=== PATIENT | male | born 1965 | race Hispanic/Latino ===

== ENCOUNTER 2024-04-03 08:24 | Emergency (ER) | payer BC ==
--- OUTSIDE RECORDS SUMMARY | 2024-04-03 08:28 | XMS REPORT | Continuity of Care Document ---
Author Name Unknown Address 1200 [facility]. [address] [place], [place] [id number] [place] [address] thconnect Address 1200 [facility] [address] [place] [address] Care Team Providers Care Monotype Caster Name Role Phone Jovon Goodwin Attending Clinician Unavail able Riley Dudley Attending Clinician Unavailable Anderson Escalante Attending Clinician Unavailkavitha e Brian Amaya Attending Clinician Charly e Jovon Goodwin Admitting Clinician Unavail able Raza Posada Admitting Clinician Unavailable Payers Payer Name Policy Type Policy Number Effective Date Expirati on Date Source Allergies, Adverse Reactions, Alerts Allergy Name Allergy Type Status Severity Reaction(s) Onset Date Inactive Date Treating Clinician Comments Source No Known Allergie s DA Active U 2023-02 00:00: 00 [facility] No Known Allergie s DA Active U 08-23 00:00: 00 [facility] No Known Allergie s DA Active U 08-23 00:00: 00 [facility] Encounters Start Date/Time End Date/Time Encounter Type Admission Type Attending Clinicians Care Facility Care Department Encounter ID Source 2024-01-31 12:24:00 2024-02-01 14:41:00 Inpatient EM Jovon Goodwin [facility] [id number] [facility] 2023-03-02 02:18:00 2023-03-02 02:40:00 Emergency EM Riley Dudley [facility] ER [id number] [facility] 2022-05-06 02:35:00 2022-05-06 04:20:00 Emergency EM Anderson Escalante [facility] ER [id number] [facility] 2020-08-23 13:21:00 2020-08-23 14:01:00 Emergency EM Brian Amaya [facility] ER [id number] [facility] Results Test Description Test Time Test Comments Results Result Co mments Source D-DIMER [id number] 10:54:00* Test Item Value Reference Range Interpretation Comme nts D-DIMER QUANT (test code = DDIMER) 270 ng/mL <500 N "D-DIMER CUT OFF OF 500 ng/mL (FEU) IS USEFUL TO EXCLUDE DXOF DVT/PEExpected value(RI) is less than 500 ng/mL (FEU) for normalhealthy subjects."Please note: Results of D-dimer assays should always beinterpreted in conjunction with the patient's medicalhistory, clinical presentation/probability and otherfindings. [id number] 06:35:00* Test Item Value Reference Range Interpretation Comme nts GLUBED (test code = GLUBED) 123 mg/dL 70-105 H Performed by cer tified fusing machine operator at [facility] BASIC METABOLIC [id number] 05:50:00* Test Item Value Reference Range Interpretation Comme nts SODIUM (test code = NA) 138 mmol/L 136-145 N POTASSIUM (test code = K) 3.9 mmol/L 3.5-5.1 N CHLORIDE (test code = CL) 105 mmol/L 98-107 N CARBON DIOXIDE (test code = CO2) 30 mmol/L 21-32 N GLUCOSE (test code = GLU) 107 mg/dL 70-100 H BLOOD UREA NITROGEN (test code = BUN) 18 mg/dL 7-18 N GLOMERULAR FILTRATION RATE (test code = GFR) 97.09 >=60 The Glomerular Filtration Rate is a calculated parameterbased on serum Creatinine, patient age and sex. GFR valuesless than 60 mL/min/1.73 square meters are indicative ofChronic Kidney Disease. Values less than 15 mL/min/1.73square meters indicate Kidney failure. The calculation forGFR is based on the CKD-EPI (2020) calculation. This formulais race indifferent and is the recommended formula for GFRby the National Kidney Foundation for Adults.The GFR will not calculate if the sex is unknown or if thepatient's age is <18 years. CREATININE (test code = CREAT) 0.91 mg/dL 0.67-1.17 N CALCIUM (test code = CA) 8.9 mg/dL 8.5-10.1 N LIPID PROFILE (CORONARY RISK)2024-02-01 05:50:00* Test Item Value Reference Range Interpretation Comme nts TRIGLYCERIDES (test code = TRIG) 276 mg/dL 30-150 H Previously repor jose result: 276 mg/dLEdited by: [id number] on 02/01/24: 0548: TRIGLYCERIDES previously reported as: 276 H mg/dL CHOLESTEROL (test code = CHOL) 106 mg/dL 0-200 N HDL CHOLESTEROL (test code = HDL) 28 mg/dL 40-59 L NON-HDL CHOLESTEROL (test code = NHDL) 78 mg/dl <130 LIPOPROTEIN LDL KARLIE (test code = LDLC) 23 mg/dl <100 Previously re ported result: 23 mg/dlEdited by: [id number] on 02/01/24: 0548: LDL KARLIE previously reported as: 23 mg/dl LDL/HDL (test code = LDL/HDL) 0.8 Ratio LDL/HDL [facility] 3.22 Average 5.03 Twice average 6.14 Three times averagePreviously reported result: 0.8 RatioEdited by: [id number] on 02/01/24:83932502/01/24 0549: LDL/HDL previously reported as: 0.8 Ratio TROPI (HIGH SENSITIVITY)2024-02-01 05:50:00* Test Item Value Reference Range Interpretation [facility] TROPI (HIGH SENSITIVITY) (test code = TROPI) 7 pg/ml <=3.0 N HIGH SENSITIVITY TROPONIN MEASUREMENT/RANGES--------- Ass ay : Units : Normal : Risk Stratification : High : : (Detectable : Limit(Suggestive of : AboveTNIH : : Limit) : sequential testing) : 99th : : : : % ile --------FEMALES: pg/ml : <= 3.0 : 3.1 - 54 : >54 --------MALES : pg/ml : <= 3.0 : 3.1 - 78 : >78 --------- [id number] 05:45:00* Test Item Value Reference Range Interpretation [facility] GLYCOSYLATED HEMOGLOBIN (HA1C) (test code = GLYHGB) 6.0 % <5.7 H SUGGESTED D IAGNOSIS INTERPRETATION Normal: <5.7% Prediabetes: 5.7 - 6.4% Diabetic: >/= 6.5%* DUE TO METHOD REVISION, REFERENCE RANGE HAS BEEN UPDATED * ESTIMATED AVERAGE GLUCOSE (test code = EAG) 126 MG/DL <126 CBC W/AUTO [id number] 04:59:00* Test Item Value Reference Range Interpretation Comme nts WHITE BLOOD CELL (test code = WBC) 9.7 X10(3) 4.5-11.0 N RED BLOOD CELL (test code = RBC) 4.17 X10(6) 4.3-5.9 L HEMOGLOBIN (test code = HGB) 13.1 g/dL 13.5-18.0 L HEMATOCRIT (test code = HCT) 38.9 % 42.0-52.0 L MEAN CELL VOLUME (test code = MCV) 93.3 fl 78-100 N MEAN CELL HGB (test code = MCH) 31.4 pg 26.0-34.0 N MEAN CELL HGB CONCETRATION (test code = MCHC) 33.7 g/dl 30.0-37.0 N RED CELL DISTRIBUTION WIDTH (test code = RDW) 12.6 % 11.5-14.5 N PLATELET COUNT (test code = PLT) 163 X10(3) 150-400 N MEAN PLATELET VOLUME (test c ode = MPV) 11.5 fl 8.7-11.4 H NEUTROPHIL % (test code = NT%) 63.5 % 36.0-66.0 N IMMATURE GRANULOCYTE % (test code = IG%) 0.4 % 0.0-2.0 N LYMPHOCYTE % (test code = LY%) 23.7 % 16.0-50.0 N MONOCYTE % (test code = MO%) 9.4 % 0.0-13.0 N EOSINOPHIL % (test code = EO%) 2.2 % 0.0-4.5 N BASOPHIL % (test code = BA%) 0.8 % 0.0-1.5 N NUCLEATED RBC % (test code = NRBC%) 0.0 % 0-0.2 N NEUTROPHIL # (test code = NT#) 6.18 X10(3) 1.70-7.70 N IMMATURE GRANULOCYTE # (test code = IG#) 0.04 X10(3)uL 0.00-0.03 H LYMPHOCYTE # (test code = LY#) 2.31 X10(3) 0.70-4.00 N MONOCYTE # (test code = MO#) 0.92 X10(3) 0.00-0.89 H EOSINOPHIL # (test code = EO#) 0.21 X10(3) 0.00-0.60 N BASOPHIL # (test code = BA#) 0.08 X10(3) 0.00-0.20 N NUCLEATED RBC # (test code = NRBC#) 0.00 K/mm3 0.0-0.1 N RBC MORPHOLOGY REQUIRED (danita t code = RBCM) NO NORMAL TROPI (HIGH SENSITIVITY)2024-01-31 22:06:00* Test Item Value Reference Range Interpretation Comme nts TROPI (HIGH SENSITIVITY) (test code = TROPI) 8 pg/ml <=3.0 N HIGH SENSITIVITY TROPONIN MEASUREMENT/RANGES--------- Ass ay : Units : Normal : Risk Stratification : High : : (Detectable : Limit(Suggestive of : AboveTNIH : : Limit) : sequential testing) : 99th : : : : % ile --------FEMALES: pg/ml : <= 3.0 : 3.1 - 54 : >54 --------MALES : pg/ml : <= 3.0 : 3.1 - 78 : >78 --------- DRUGS OF ABUSE [id number] 21:20:00* Test Item Value Reference Range Interpretation Comme nts UR COCAINE (test code = COCAU) NEGATIVE ng/ml NEGATIVE UR CANNABINOIDS (test code = CANU) NEGATIVE ng/ml NEGATIVE UR AMPHETAMINE (test code = AMPHU) NEGATIVE ng/dl NEGATIVE UR BARBITURATE (test code = BARBU) NEGATIVE ng/ml NEGATIVE UR BENZODIAZEPINE (test code = BENZU) NEGATIVE ng/ml NEGATIVE UR OPIATES QUAL (test code = OPIAQLU) NEGATIVE ng/ml NEGATIVE UR PHENCYCLIDINE (PCP) (test code = PHENCU) NEGATIVE ng/ml NEGATIVE THE URINE SPECIM EN WAS TESTED AT THE [facility] INITIAL TEST LEVEL AMPHETAMINES 1000 NG/MLBARBITURATES 200 NG/MLBENZODIAZEPIN ES 200 NG/MLCOCAINE METABOLITE 300 NG/MLMARIJUANA METABOLITE 50 NG/MLOPIATES 300 NG/MLPHENCYCLIDINE 25 NG/ML [id number] 20:50:00* Test Item Value Reference Range Interpretation Comme nts GLUBED (test code = GLUBED) 105 mg/dL 70-105 N Performed by cer tified fusing machine operator at [facility] TROPI (HIGH SENSITIVITY)2024-01-31 16:25:00* Test Item Value Reference Range Interpretation Comme nts TROPI (HIGH SENSITIVITY) (test code = TROPI) 7 pg/ml <=3.0 N HIGH SENSITIVITY TROPONIN MEASUREMENT/RANGES--------- Ass ay : Units : Normal : Risk Stratification : High : : (Detectable : Limit(Suggestive of : AboveTNIH : : Limit) : sequential testing) : 99th : : : : % ile --------FEMALES: pg/ml : <= 3.0 : 3.1 - 54 : >54 --------MALES : pg/ml : <= 3.0 : 3.1 - 78 : >78 --------- [id number] 15:56:00* Test Item Value Reference Range Interpretation Comme nts GLUBED (test code = GLUBED) 104 mg/dL 70-105 N Performed by cer tified fusing machine operator at [facility] POC,[id number] 11:20:00* Test Item Value Reference Range Interpretation Comme nts POC,PHOSPHORUS (test code = EDPHOS) 3.6 mg/dL 2.2-4.1 N [facility], [address] [place] [address], [address], [phone]-KcAwuts [facility], [address] [place] [address], [address], POC,[id number] 11:20:00* Test Item Value Reference Range Interpretation Comme [facility] POC,MAGNESIUM (test code = EDMG) 2.1 mg/dL 1.6-2.3 N [facility], [address] [place] [address], [address], [phone]-LhMzsuz [facility], [address] [place] [address], [address], COMPREHENSIVE METABOLIC [id number] 11:19:00* Test Item Value Reference Range Interpretation Comme nts POC,SODIUM (test code = ARTEMIO) 144 mmol/L 128-145 N POC,POTASSIUM (test code = EDK) 4.5 mmol/L 3.6-5.1 N POC,CHLORIDE (test code = EDCL) 106 mmol/L 98-108 N POC,TCO2 (test code = EDTCO2) 31 mmol/L 18-33 N POC,ANION GAP (test code = EDAGAP) 7 mmol/L 7-16 N POC,BUN (test code = EDBUN) 14 mg/dL 7-22 N POC,CREATININE (test code = EDCRE) 0.9 mg/dL 0.6-1.2 N POC,GLUCOSE (test code = EDGLUC) 125 mg/dL 73-118 H POC,CALCIUM (test code = EDCA) 9.7 mg/dL 8.0-10.3 N POC,eGFR (test code = EDGFR) 98 mL/min See_Comment eGFR is not calc ulated if age <18 yrs, if the sex in EHR islisted as unknown or the creatinine level is below assayrange. This result value is determined by the eGFR 2020 CKD-EPIformula using serum creatinine, age and sex, excluding arace coefficient. The assay for creatinine is traceable tothe IDMA reference method. Chronic kidney disease (CKD) maynot be detectable based solely on creatinine levels. A eGFR> 60 does not rule out mild renal disease. To distinguishnormal renal function from mild renal disease, furtherlaboratory testing may be required. [Automated message] The system which generated this result transmitted reference range: >or=60. The reference range was not used to interpret this result as normal/abnormal. POC,ALBUMIN (test code = EDALB) 4.1 g/dL 3.3-5.5 N POC,TOTAL PROTEIN (test code = EDTP) 7.4 g/dL 6.4-8.1 N POC,BILIRUBIN TOTAL (test code = EDTBIL) 0.9 mg/dL 0.2-1.6 N POC,AST (test code = EDAST) 30 U/L 11-38 N POC,ALT (test code = EDALT) 33 U/L 10-47 N POC,ALKALINE PHOSPHATASE (test code = EDALP) 80 U/L 53-128 N [facility] [address], [address], POC,TROPONIN [id number] 10:58:00* Test Item Value Reference Range Interpretation Comme nts POC,TROPONIN I (test code = EDTROPI) <0.05 ng/mL <0.05 N The [employer] Troponin Test is used as an aid in thediagnosis of myocardial infarction (injury). Test results should not be used as absolute evidence ofmyocardial infarction and should be evaluated in the contextof all the clinical and laboratory data available. In thoseinstances where the test results do not agree with theclinical evaluation, additional tests should be performedaccordingly. [facility] [address], [address], POC,B TYPE NATRIURETIC [id number] 10:49:00* Test Item Value Reference Range Interpretation Comme [facility] POC,B TYPE NATRIURETIC PEPTIDE (test code = EDBNP) 18 pg/mL <100 N The [employer] BNP Test offers an objective, noninvasivemeasurement for assessing patients for CHF and riskstratification in patients with acute coronary syndromes(ACS). Test results should be evaluated in the context of all theclinical and laboratory data available. In those instanceswhere test results do not agree with the clinicalevaluation, additional tests should be performedaccordingly. Results using different methodologies shouldnot be compared to one another as quantitative results mayvary by method. EXPECTED VALUES:BNP results less than or equal to 100 pg/mL arerepresentative of normal values in patients without CHF. BNP results greater than 100 pg/mL are considered abnormaland suggestive of patients with CHF. BNP results of greater than 5000 pg/mL are considered veryhigh values for BNP and exceed upper limits of the BNP test. Higher BNP concentrations measured in the first 72 hoursafter an acute coronary syndrome are associated with anincreased risk of , myocardial infarction, and CHF. Higher BNP concentrations or the lack of decrease in the BNPconcentration from hospital admission to discharge indicatean increased risk of hospitalization or in patientswith heart failure. [facility], [address], [address], COMPLETE BLOOD COUNT (CBC)2024-01-31 10:34:00* Test Item Value Reference Range Interpretation Comme [facility] POC,WHITE BLOOD CELL (test c ode = EDWBCP) 9.9 10 3/uL 3.9-9.4 H POC,RED BLOOD CELL (test cod e = EDRBCP) 4.63 10 6/uL 4.14-5.52 N POC,HEMOGLOBIN (test code = EDHGBP) 14.6 g/dL 11.9-16.7 N POC,HEMATOCRIT (test code = EDHCTP) 41.2 % 36.1-49.4 N POC,MEAN CELL VOLUME (test c ode = EDMCVP) 89.0 fL 83.2-96.0 N POC,MEAN CELL HEMOGLOBIN (te st code = EDMCHP) 31.5 pg 27.1-32.5 N POC,MEAN CELL HGB CONC (test code = EDMCHCP) 35.4 g/dL 31.0-35.8 N POC,PLATELET COUNT (test cod e = EDPLTP) 156 10 3/uL 155-330 N POC,RED CELL DISTRIB WIDTH ( test code = EDRDWP) 13.3 % 12.0-15.0 N POC,LYMPHOCYTES % (test code = EDLYM%P) 22.0 % 16.8-42.5 N POC,MIXED CELLS % (test code = EDMXD%P) 7.5 % 3.2-16.9 N POC,NEUTROPHILS % (test code = EDNEUT%P) 70.5 % 46.4-74.7 N POC,LYMPHOCYTES # (test code = EDLYM#P) 2.2 10 3/uL 0.9-3.0 N POC,MIXED CELLS # (test code = EDMXD#P) 0.7 10 3/uL 0.2-1.1 N POC,NEUTROPHILS # (test code = EDNEUT#P) 7.0 10 3/uL 2.2-6.4 H POC,MEAN PLATELET VOLUME (te st code = EDMPVP) 11.9 fL 8.7-12.6 N [facility] [address], [address], Notes Date/Time Note Provider Source 2024-02-01 11:49:00 [facility] Discharge Summary REPORT#:[id number] REPORT STATUS: Signed REPORT INITIALIZATION DATE:02/01/24 TIME: 1149 PATIENT: NETTA RAYMUNDO UNIT #: [id number] ROOM/BED: [address] : 64 AGE: 58 SEX: M ATTEND: Jovon Goodwin MD ADM AUTHOR: Jovon Goodwin MD REPT SERVICE DT/TIME: 02/01/24 1149 * ALL edits or amendments must be made on the electronic/computer document * PCP PCP Discharge to: home General Information Discharge date: 02/01/24 Discharge diagnosis: Chest pain likely MSK, ruled out ACS. HTN DM2 Active smoker [facility] Hospital course: 58-year-old male who presented to the freestanding ER with complaints of chest pain. He states he went to sleep fine but woke up due to chest pain on the left side. He states it radiated to his back. He denied any diaphoresis, nausea, shortness of breath or palpitations, no dizziness at that time but states yesterday he did feel a little dizzy while he was setting up for a barbecue. He denies doing anything out of the ordinary, he used an ax yesterday which he usually does every few weeks. He took 4 aspirin at home and states the pain did not last very long but since it radiated to his back which was different than the previous times he decided to come to the emergency room. He states the pain worsens when he is laying on his left side. He does admit to recently increased stress. Upon evaluation in the ER, troponin was normal At less than 0.05 BNP normal 18 EKG showing sinus rhythm with a rate of 72. ER MD notes indicate EKG is with some abnormality with questionable old infarct and he has been transferred to the main hospital and admitted to our services for further management. Right now patient is being seen in his room, , he is chest pain -free at this time. Family is at bedside. Patient admitted for further evaluation and treatment. Patient had serial troponin that were negative times 3. EKG without new changes. CXR without noticible fractures; ddimer normal for age, no signs of PE with a WELLS score of 0. Pain likely from MSK as patient mention pain started weeks ago after carrying something heavy. Patient can f/u with PCP, no ACS during this admission. Associated exam: General appearance: alert, awake, oriented, no acute distress, pleasant, conversational, mental status normal, no respiratory distress Head/Eyes: atraumatic, normal conjunctiva/sclera, normocephalic, PERRL ENT: moist mucosal membranes, normal dentition, normal ear left, normal ear right, normal nose Neck: full range of motion, supple/no meningismus, no JVD Cardiovascular: normal heart sounds, regular rate rhythm Respiratory: aerating well, clear to auscultation, symmetric expansion, no distress Abdomen: non-tender, normal bowel sounds, soft, no distention Genitourinary: no flank pain Extremities: moves all, normal range of motion, no cyanosis, no edema Musculoskeletal: normal inspection, no muscle spasm Neuro/WIRE WEB WORKER: alert, oriented X 3, normal speech Skin: dry, intact, normal color Psychiatry: normal affect, normal judgment/insight, normal mood Med Rec PCP PCP: PCP: Raza Posada MD Med Rec Discharge meds: Continue taking these medications: amLODIPine (NORVASC) 10 MG TAB 10 MILLIGRAM ORAL DAILY. Comments: TAKE 1 TABLET BY MOUTH ONCE DAILY; 90 Days #90 EA - SIG Obtained From [employer]View™ Audio ATORVASTATIN (LIPITOR) 40 MG TAB 40 MILLIGRAM ORAL DAILY. Comments: TAKE 1 TABLET BY MOUTH ONCE DAILY AT NIGHT; 90 Days #90 EA - SIG Obtained From [employer]™ Audio metFORMIN (GLUCOPHAGE) 1,000 MG TAB 1,000 MILLIGRAM ORAL DAILY. Instructions: TAKE WITH MEALS Comments: TAKE 1 TABLET BY MOUTH ONCE DAILY WITH FOOD; 90 Days #90 EA - SIG Obtained From [employer]View™ Audio OLMESARTAN MED/amLODIPine/HCTZ (TRIBENZOR 40/10/12.5 MG) 40 MG-10 MG-12.5 MG TAB 1 TABLET ORAL DAILY. Objective VS/I O Last Documented: Result Date Time Pulse Ox 95 01/31 1123 B/P 122/62 01/31 1123 B/P Mean 82.0 01/31 1123 O2 Delivery Room air 01/31 112 Temp 36.9 01/31 1123 Pulse 60 01/31 1123 Resp 17 01/31 1123 24 hour I O ending at 0700: 01/31 0700 01/30 1900 Intake Total 240 Output Total Balance 240 Intake, Oral 240 Number 0 Bowel Movements Number Voids 8 Patient 105 kg Weight Weight Standing scale Measurement Method PATIENT WEIGHT: Weight (lb): Weight (oz): Weight (kg): 105.000 Discharge Instructions PCP PCP: PCP: Raza Posada MD )( Discharge to: Home/Self Care Discharge Instructions Additional Discharge Routines: PCP Follow-Up )( Diet: Low Sodium Discharge management: greater than 30 mins Time spent: Time spent on patient care (minutes): 47 Follow-up Appointments PCP follow up: PCP: Raza Posada MD PCP follow up timeframe: In 5 days at 1157 RPT #:[id number] [facility] OF [facility] 2024-01-31 16:10:00 [id number] [place] [address] PATIENT NAME: NETTA RAYMUNDO ADMIT DATE: 01/31/24 ACCOUNT NO: [id number] ROOM NO: [facility] AGE: 58 REPORT TYPE: ELECTROCARDIOGRAM SEX: M : 63 ADMITTING PHYSICIAN:Jovon Goodwin MD ATTENDING PHYSICIAN:Jovon Goodwin MD Order: [id number] Test Reason : chest pain Test Date/Time Stamp: [place] Jan 31 2024 16:10:32 Blood Pressure : / mmHG Vent. Rate : 053 BPM Atrial Rate : 053 BPM P-R Int : 172 ms QRS Dur : 100 ms QT Int : 424 ms P-R-T Axes : 035 018 -06 degrees QTc Int : 397 ms Sinus bradycardia Possible Anterior infarct , age undetermined Abnormal ECG No previous ECGs available Confirmed by CARLOS HILLMAN ([id number]) on 03/18/2024 8:43:07 AM Referred By: Jovon Sidhu Confirmed by:BRENDA HILLMAN at 0843 PATIENT NAME: NETTA RAYMUNDO [facility] 2024-01-31 15:23:00 [facility] ([facility] Hospitalist History Physical REPORT#:[id number] REPORT STATUS: Signed REPORT INITIALIZATION DATE:01/31/24 TIME: 1523 PATIENT: NETTA RAYMUNDO UNIT #: [id number] [facility] AGE: 58 SEX: M ATTEND: Jovon Goodwin MD ADM AUTHOR: Lorie Romeo CARBURETOR SPECIALIST [facility] DT/TIME: 01/31/24 1523 * ALL edits or amendments must be made on the electronic/computer document * Lorie Romeo 01/31/24 1523: History of Present Illness HPI Chief complaint: LEFT SIDED CP PCP: PCP: Raza Posada MD HPI: 58-year-old male who presented to the freestanding ER with complaints of chest pain. He states he went to sleep fine but woke up due to chest pain on the left side. He states it radiated to his back. He denied any diaphoresis, nausea, shortness of breath or palpitations, no dizziness at that time but states yesterday he did feel a little dizzy while he was setting up for a barbecue. He denies doing anything out of the ordinary, he used an ax yesterday which he usually does every few weeks. He took 4 aspirin at home and states the pain did not last very long but since it radiated to his back which was different than the previous times he decided to come to the emergency room. He states the pain worsens when he is laying on his left side. He does admit to recently increased stress. Upon evaluation in the ER, troponin was normal At less than 0.05 BNP normal 18 EKG showing sinus rhythm with a rate of 72. ER MD notes indicate EKG is with some abnormality with questionable old infarct and he has been transferred to the main hospital and admitted to our services for further management. Right now patient is being seen in his room, , he is chest pain -free at this time. Family is at bedside. History Past Medical Surgical Hx Additional medical history: Diabetes and hypertension and hyperlipidemia Severe obesity with clinically significant comorbidities [BMI 35.8 kg/m on 03/02/2023] 1 prior episode of allergic/angioedema/urticaria reaction to eating hot dog [03/02/2023] similar reaction to eating red taco. Additional surgical history: Dental work Family History Additional family history: Diabetes Social History Other social history: Primary family support, Local resident, Good social support Additional social history: Quit smoking 8 years ago but was a 1 pack/day smoker. Admits to drinking at least 2 beers every Thursday and Thursday. No drug abuse. Medication/Allergy-Vaccine Hx Medications: Home Medications: amLODIPine (NORVASC) 10 MG PO DAILY ATORVASTATIN (LIPITOR) 40 MG PO DAILY metFORMIN (GLUCOPHAGE) 1,000 MG PO DAILY OLMESARTAN MED/amLODIPine/HCTZ (TRIBENZOR 40/10/12.5 MG) 1 TAB PO DAILY Allergies: Coded Allergies: No Known Allergies (01/31/24) Review of Systems Free Text ROS Notes Free Text ROS Notes: A 14 point review of system was obtained, pertinent positives and negatives include: Complains of left-sided chest pain that radiates to his back that is worsened while laying on his left side. No complaints of any dizziness or shortness of breath, nausea, vomiting, palpitations, syncopal episodes. No fevers or chills. No urinary symptoms. No abdominal pain, vomiting or diarrhea OBJECTIVE VS/I O: Vital Signs Date Temp Pulse Resp B/P B/P Mean Pulse Ox FiO2 01/30 98.1-98.6 62-78 16-17 125-165/61-81 82-109.2 95-99 Last Documented: Result Date Time Pulse 62 01/30 1506 Pulse Ox 95 01/30 1449 B/P 165/81 01/30 1449 B/P Mean 109.2 01/30 1449 O2 Delivery Room air 01/30 1449 Temp 98.4 01/30 1449 Resp 17 01/30 1449 Patient Weight and BMI Weight (kg): 105.000 BMI: 33.2 Medications: Active Meds + DC'd Last 24 Hrs Aspirin (ASPIRIN) 81 MG DAILY PO Insulin Human Regular (Humulin R 10ml) MODERATE DOSE SLIDING SCALE AC HS SUBQ Dextrose/Water (DEXTROSE 50% SYRINGE) 25 ML ASDIR PRN IV (CKD) Glucagon (GLUCAGON) 1 MG ASDIR PRN IM Nitroglycerin (NITROSTAT 0.4MG) 1 TAB Q5M PRN PRN SL (CKD) Influenza Virus Vacc Triv Types A B (Fluzone Trivalent Syringe) 0.5 ML ASDIR IM Influenza Virus Vacc Triv Types A B (Fluzone Trivalent Syringe) 0.5 ML ASDIR IM (DC) Aspirin (ASPIRIN) 324 MG X1ED STA PO (DC) Results Findings/Data: Laboratory Tests: 01/30 01/30 01/30 01/30 01/30 1055 1045 1032 1030 1024 Chemistry POC Sodium (128 - 145 mmol/L) 144 POC Potassium (3.6 - 5.1 mmol/L) 4.5 POC Chloride (98 - 108 mmol/L) 106 POC Total CO2 (18 - 33 mmol/L) 31 POC Anion Gap (7 - 16 mmol/L) 7 POC BUN (7 - 22 mg/dL) 14 POC Creatinine (0.6 - 1.2 mg/dL) 0.9 Est GFR (CKD-EPI 2020) (>or=60 mL/min) 98 POC Glucose (73 - 118 mg/dL) 125 H POC Calcium (8.0 - 10.3 mg/dL) 9.7 POC Phosphorus (2.2 - 4.1 mg/dL) 3.6 POC Magnesium (1.6 - 2.3 mg/dL) 2.1 POC Total Bilirubin (0.2 - 1.6 mg/dL) 0.9 POC AST (11 - 38 U/L) 30 POC ALT (10 - 47 U/L) 33 POC Alk Phosphatase (53 - 128 U/L) 80 POC Troponin I (<0.05 ng/mL) <0.05 POC B-Natriuretic Pept (<100 pg/mL) 18 POC Total Protein (6.4 - 8.1 g/dL) 7.4 POC Albumin (3.3 - 5.5 g/dL) 4.1 Hematology POC WBC (3.9 - 9.4 10 3/uL) 9.9 H POC RBC (4.14 - 5.52 10 6/uL) 4.63 POC Hgb (11.9 - 16.7 g/dL) 14.6 POC Hct (36.1 - 49.4 %) 41.2 POC MCV (83.2 - 96.0 fL) 89.0 POC MCH (27.1 - 32.5 pg) 31.5 POC MCHC (31.0 - 35.8 g/dL) 35.4 POC RDW Coeff of Aryan (12.0 - 15.0 %) 13.3 POC Platelet Count (155 - 330 10 3/uL) 156 POC MPV (8.7 - 12.6 fL) 11.9 POC Mixed Cells % (3.2 - 16.9 %) 7.5 POC Neut # (2.2 - 6.4 10 3/uL) 7.0 H POC Lymph # (Auto) (0.9 - 3.0 10 3/uL) 2.2 POC Mixed Cells # (0.2 - 1.1 10 3/uL) 0.7 POC Lymphocytes % (16.8 - 42.5 %) 22.0 POC Neutrophils % (46.4 - 74.7 %) 70.5 Radiology data: Recent Impressions: RADIOLOGY - XR CHEST 1 V 01/30 1030 Report Impression - Status: SIGNED Entered: 01/31/2024 1058 FINDINGS/IMPRESSION: No consolidation. No pleural effusion, or pneumothorax. Nonenlarged cardiomediastinal silhouette. Impression By: [email or web address] Armin Billingsley MD Results: labs reviewed, vital signs reviewed, vital signs stable, x-ray personally reviewed, current med profile rev'd Free Text PE Notes Free Text PE Notes: General appearance: alert, awake, oriented, no acute distress, pleasant, conversational, mental status normal, no respiratory distress Head/Eyes: atraumatic, normal conjunctiva/sclera, normocephalic, PERRL ENT: moist mucosal membranes, normal dentition, normal ear left, normal ear right, normal nose Neck: full range of motion, supple/no meningismus, no JVD Cardiovascular: normal heart sounds, regular rate rhythm Respiratory: aerating well, clear to auscultation, symmetric expansion, no distress Abdomen: non-tender, normal bowel sounds, soft, no distention Genitourinary: no flank pain Extremities: moves all, normal range of motion, no cyanosis, no edema Musculoskeletal: normal inspection, no muscle spasm Neuro/WIRE WEB WORKER: alert, oriented X 3, normal speech Skin: dry, intact, normal color Psychiatry: normal affect, normal judgment/insight, normal mood Diagnosis, Assessment Plan Free Text A P: ASSESSMENT: Chest pain w/neg trop x1 HTN DM2 Active smoker Obestiy PLAN: tele monitoring Trend troponins Check EKG Check UDS add BB and asa cxr film reviewed, no infiltrates resume home meds Follow am labs including lipid panel and A1c DVT/PUD prophylaxis: Lovenox and Pepcid monitor bp and adjust meds as needed monitor gluocmeters and cover w/RISS plan d/w pt at bedside, in agreement case d/w Dr. Logan see orders Jovon Goodwin 02/01/24 1235: Attestations Physician Attestation Agree w/findings plan: Agree with the findings and plan as documented by CERTIFIED PROCEDURAL CODER. at 1622 at 1235 RPT #:[id number] END OF REPORT [facility] 2024-01-31 10:18:[address] [facility] ([facility] EMERGENCY PROVIDER REPORT REPORT#:[id number] REPORT STATUS: Signed DATE:01/31/24 TIME: 1018 PATIENT: NETTA RAYMUNDO UNIT #: [id number] ROOM/BED: [place] [id number] : 64 AGE: 58 SEX: M PCP PHYS: Raza Posada MD SERVICE AUTHOR: Rand Nur DO REP SRV REP SRV TM: 1018 * ALL edits or amendments must be made on the electronic/computer document * HPI-Chest Pain 40 and Over General Confirmed Patient Yes Patient Type Existing patient Initial Greet Date/Time 01/31/24 1018 Presentation Chief Complaint Chest pain Hx Obtained From Patient Sudden in Onset? No Onset Occurred Yesterday Symptom Duration Since onset Progression since Onset Unchanged Location Chest L Quality Aching Radiation Arm L, Shoulder L. )( Migration/Movement None Risk-Chest Pain 40 and Over Risk Stratification )( Coronary Artery Disease Risk factors reviewed )( Thoracic Aortic Dissection Risk factors reviewed )( Pulmonary Embolism Risk factors reviewed )( AMI-Aspirin Aspirin Last 24 Hrs 325 mg, On arrival )( HEART for MACE )( HEART for MACE Response Value History High index of suspicion 2 ECG Interpretation Nonspec repol disturb 1 Age Age 45 - 65 1 Risk Factors for CAD 1-2 CAD risk factors 1 Total 5 Review of Systems ROS Statements All systems rev neg except as marked. Complete sys rev neg except as marked. Basic Review of Systems Basic ROS EYES: No redness, ENT: No sore throat, : No dysuria/frequency, HEM: No bleeding/bruising Past Medical History - Adult Stated Complaint CHEST PAIN Allergies Coded Allergies: No Known Allergies (08/23/20) Home Medications Active Scripts predniSONE 50 MG PO DAILY predniSONE 50 MG PO DAILY #5 TABS Prov: 03/02/23 predniSONE 20 MG PO DAILY predniSONE 20 MG PO DAILY #5 TABS Prov: 05/06/22 Past Medical History: Reports: Diabetes mellitus. Denies: Hypertension. Additional Medical History Severe obesity with clinically significant comorbidities [BMI 35.8 kg/m on 03/02/2023] 1 prior episode of allergic/angioedema/urticaria reaction to eating hot dog, today [03/02/2023] similar reaction to eating red taco. Additional Surgical History Dental work Other Social History Primary family support, Local resident, Good social support Physical Exam Vital Signs Vital Signs First Documented: Result Date Time Pulse Ox 99 01/30 1012 B/P 138/71 01/30 1012 B/P Mean 93 01/30 1012 Temp 36.7 01/30 1012 Pulse 71 01/30 1012 Resp 16 01/30 1012 Last Documented: Result Date Time Pulse Ox 98 01/30 1207 B/P 125/61 01/30 1207 B/P Mean 82 01/30 1207 Temp 37.0 01/30 1207 Pulse 65 01/30 1207 Resp 16 01/30 1207 Review of Vital Signs Reviewed Basic Physical Exam Basic PE HEAD: Atraumatic/NC, EYES: PERRL, conj clear, ENT: Membranes moist, NECK: Supple, EXT: No gross abnormality, SKIN: No rashes, warm/dry, NEURO: alert oriented, NEURO: gross movement NL, PSYCH: NL thought content Focused PE General/Const General/Const Awake, Alert, Well appearing, Well developed, Well hydrated, Well nourished, Cooperative, Not toxic appearing Distress/Hydration Distress mild. Resp/Chest Respiratory/Chest Atraumatic, Breath sounds NL, Breath sounds = bilat, No respiratory distress, No rales, No rhonchi, No wheezing, No retractions, No stridor, No chest tenderness, No chest wall deformity, No crepitus Cardiovascular Cardiovascular Heart rate NL, Regular rhythm, Heart sounds NL Abdomen/GI Tenderness/Guarding/Rebound Negative: Tender RUQ, Tender LUQ, Tender RLQ, Tender LLQ, Tender epigastric, Tender periumbilical, Tender suprapubic, Tender diffuse, Tender flank R, Tender flank L, Wise's sign positive, McBurney's point tender, Guarding voluntary, Guarding involuntary, Rebound localized, Rebound diffuse, Rigid to palpation. Interpretation Diagnostics Lab Results Interpretation Considerations Independ review imaging, Reviewed prior records Results Laboratory Tests: 01/30 01/30 01/30 01/30 01/30 1055 1045 1032 1030 1024 Chemistry POC Sodium (128 - 145 mmol/L) 144 POC Potassium (3.6 - 5.1 mmol/L) 4.5 POC Chloride (98 - 108 mmol/L) 106 POC Total CO2 (18 - 33 mmol/L) 31 POC Anion Gap (7 - 16 mmol/L) 7 POC BUN (7 - 22 mg/dL) 14 POC Creatinine (0.6 - 1.2 mg/dL) 0.9 Est GFR (CKD-EPI 2020) (>or=60 mL/min) 98 POC Glucose (73 - 118 mg/dL) 125 H POC Calcium (8.0 - 10.3 mg/dL) 9.7 POC Phosphorus (2.2 - 4.1 mg/dL) 3.6 POC Magnesium (1.6 - 2.3 mg/dL) 2.1 POC Total Bilirubin (0.2 - 1.6 mg/dL) 0.9 POC AST (11 - 38 U/L) 30 POC ALT (10 - 47 U/L) 33 POC Alk Phosphatase (53 - 128 U/L) 80 POC Troponin I (<0.05 ng/mL) <0.05 POC B-Natriuretic Pept (<100 pg/mL) 18 POC Total Protein (6.4 - 8.1 g/dL) 7.4 POC Albumin (3.3 - 5.5 g/dL) 4.1 Hematology POC WBC (3.9 - 9.4 10 3/uL) 9.9 H POC RBC (4.14 - 5.52 10 6/uL) 4.63 POC Hgb (11.9 - 16.7 g/dL) 14.6 POC Hct (36.1 - 49.4 %) 41.2 POC MCV (83.2 - 96.0 fL) 89.0 POC MCH (27.1 - 32.5 pg) 31.5 POC MCHC (31.0 - 35.8 g/dL) 35.4 POC RDW Coeff of Aryan (12.0 - 15.0 %) 13.3 POC Platelet Count (155 - 330 10 3/uL) 156 POC MPV (8.7 - 12.6 fL) 11.9 POC Mixed Cells % (3.2 - 16.9 %) 7.5 POC Neut # (2.2 - 6.4 10 3/uL) 7.0 H POC Lymph # (Auto) (0.9 - 3.0 10 3/uL) 2.2 POC Mixed Cells # (0.2 - 1.1 10 3/uL) 0.7 POC Lymphocytes % (16.8 - 42.5 %) 22.0 POC Neutrophils % (46.4 - 74.7 %) 70.5 Recent Impressions: RADIOLOGY - XR CHEST 1 V 01/30 1030 Report Impression - Status: SIGNED Entered: 01/31/2024 1058 FINDINGS/IMPRESSION: No consolidation. No pleural effusion, or pneumothorax. Nonenlarged cardiomediastinal silhouette. Impression By: [email or web address] Armin Billingsley MD ECG #1 Interpretation ECG Interpretation Note The ECG interpretation was done contemporaneously by me. This is an adequate tracing. EKG was done at 10:12 AM. Normal sinus rhythm. Rate of 72. Left ax deviation. No acute ST-T elevation. No STEMI. Questionable old infarct. No old EKG for comparison at this time. Re-Evaluation MDM Re-Evaluation/Progress #1 Re-Eval Status Improved Tissue Perfusion Reassessment Patient tissue perfusion reassessment completed. ED Course Medication(s) Ordered Medication(s) Ordered: Central Nervous System Agents Sig/Yvan Start time Last Medication Dose Route Stop Time Status Admin Aspirin 324 MG X1ED STA 01/30 1022 DC 01/30 PO 01/30 1023 1028 Differential Diagnosis )( Differential Diagnosis Gastritis, GERD, Mitral stenosis, Musculoskeletal pain , Myocardial infarction, Myocarditis, Peptic ulcer disease, Pericarditis, Pulmonary edema, Stable angina, Unstable angina Free Text MDM Notes Free Text MDM Notes Patient remained stable throughout course of treatment. Full dose of aspirin was given. Labs were essentially unremarkable. However EKG showed some abnormality. Questionable old infarct. Patient has said that he never been admitted to hospital for chest pain. Since he is a diabetic and his heart score is approximately 5, decision was made to admit the patient. Case discussed with admit physician. Will admit to their service. Case also discussed with patient. He agreed. Patient Discharge Departure Vital Signs/Condition Vital Signs First Documented: Result Date Time Pulse Ox 99 01/30 1012 B/P 138/71 01/30 1012 B/P Mean 93 01/30 1012 Temp 36.7 01/30 1012 Pulse 71 01/30 1012 Resp 16 01/30 1012 Last Documented: Result Date Time Pulse Ox 98 01/30 1207 B/P 125/61 01/30 1207 B/P Mean 82 01/30 1207 Temp 37.0 01/30 1207 Pulse 65 01/30 1207 Resp 16 01/30 1207 All vital signs available at the time of this entry have been reviewed. Condition Stable Clinical Impression Clinical Impression Primary Impression: Chest pain Secondary Impressions: Hx of diabetes mellitus Disposition Decision Hospitalize Hosp Physician Hospitalist Request Time 1122 Request Date 01/31/24 )( Accepts Hospitalization Yes )( Accepted Time 1122 )( Accepted Date 01/31/24 Call Information will see patient, agrees with eval, agrees with plan Discharge/Care Plan Admit Note I have spoken with the patient and/or caregivers. I have explained the patient's condition, diagnoses and treatment plan based on the information available to me at this time. I have answered the patient's and/or caregiver's questions and addressed any concerns. The patient and/or caregivers have as good an understanding of the patient's diagnosis, condition and treatment plan as can be expected at this point. The patient has been stabilized within the capability of the emergency department. The patient will be transported for further care and management or will be moved to an observation or inpatient service. I have communicated with the staff or medical practitioner taking over this patient's care. at 1335 RPT #:[id number] END OF REPORT [facility] 2023-03-02 02:26:[address] [facility] ([facility] EMERGENCY PROVIDER REPORT REPORT#:[id number] REPORT STATUS: Signed DATE:03/02/23 TIME: 0226 PATIENT: NETTA RAYMUNDO UNIT #: [id number] ROOM/BED: AGE: 57 SEX: M PCP PHYS: Raza Posada MD SERVICE AUTHOR: Riley Dudley MD * ALL edits or amendments must be made on the electronic/computer document * HPI-Allergic Reaction General Patient Type Existing patient Initial Greet Date/Time 03/02/23 0220 Presentation Chief Complaint Allergic reaction, Rash Context Immunization Status General Unknown Recent Healthcare No recent doctor visit, No recent hospitalization Similar Sx Previous Yes Free Text HPI Notes Free Text HPI Notes Raymundo presents ambulatory with his daughter and family for evaluation and management of urticaria and swelling of his left upper lip and left-sided gums, as well as urticaria to the right hip, buttock and pubis following a red chorizo taco yesterday evening for dinner. He reports experiencing 1 prior similar episode from eating a hotdog. He has not seen an subway car repairer for this. He thought it might help to take Pepto-Bismol, the only medication he took tonight and it did not help. Pain assessment: 0/10 on the [place] visual analog scale, nothing makes it better or worse. He otherwise denies any chest pain, shortness of breath, nausea, vomiting, diarrhea, dizziness, dysuria, earaches, sore throat, dysphagia, dysphonia, dysphoria, diaphoresis, sneezing, coughing, fevers, chills, swelling of the throat or the tongue, any respiratory compromise. All other review of systems are negative or noncontributory. Review of Systems ROS Statements All systems rev neg except as marked. Basic Review of Systems Basic ROS CV: No chest pain, : No dysuria/frequency, MS: No ext swelling/pain, HEM: No bleeding/bruising, PSYCH: NL thought content Focused Review of Systems Constitutional Denies: Chills, Fever, Lethargy. Eyes Denies: Eye pain bilat, Redness bilat, Visual loss bilat. Ears/Nose/Throat Denies: Mouth pain. Respiratory Denies: Cough, non-productive, Cough, productive, Dyspnea on exertion, Hemoptysis, Parox nocturnal dyspnea, Pleuritic pain, Shortness of breath, Wheezing. GI Denies: Abdominal pain, Diarrhea, Nausea, Vomiting. Skin Denies: Diaphoresis, Rash. Allergy/Immun Reports: Allergic reaction, Hives. Denies: Itching. Neurologic Denies: Change LOC, Dizziness, Focal weakness, Headache, Numbness, Slurred speech. Past Medical History - Adult Stated Complaint SKIN ERUPTIONS TO L UPPERLIP AND HIPS, BUTTOC Allergies Coded Allergies: No Known Allergies (08/23/20) Home Medications Active Scripts predniSONE 20 MG PO DAILY predniSONE 20 MG PO DAILY #5 TABS Prov: 05/06/22 Review of Nursing Notes Rev avail, and agree, Triage notes reviewed, Rapid assess notes rev Pt reports no significant: Past surgical history, Family history, Social history Past Medical History: Reports: Diabetes mellitus. Denies: Hypertension. Additional Medical History Severe obesity with clinically significant comorbidities [BMI 35.8 kg/m on 03/02] 1 prior episode of allergic/angioedema/urticaria reaction to eating hot dog, today [03/02/2023] similar reaction to eating red taco. Additional Surgical History Dental work Pt reports no Fam Hx pert to chief complaint. Smoking status for patients 13 years old or older: Unknown,if ever smoked Other Social History Primary family support, Local resident, Good social support Ambulatory Status Independent Physical Exam Vital Signs Vital Signs First Documented: Result Date Time Pulse Ox 98 03/02 0218 B/P 177/81 03/02 217 B/P Mean 113 03/02 217 O2 Delivery Room air 03/02 217 Temp 97.4 03/02 217 Pulse 68 03/028 Resp 18 03/02 217 Last Documented: Result Date Time Pulse Ox 98 03/02 0240 B/P 162/79 03/02 239 B/P Mean 106 03/020 O2 Delivery Room air 03/02 239 Pulse 70 03/02 0240 Resp 18 03/02 239 Temp 97.4 03/028 Review of Vital Signs Vital signs abnormal Basic Physical Exam Basic PE HEAD: Atraumatic/NC, EYES: PERRL, conj clear, ENT: Membranes moist, NECK: Supple, ABD: Soft/non-tender, EXT: No gross abnormality, NEURO: alert oriented, NEURO: gross movement NL, PSYCH: NL thought content Focused PE General/Const General/Const Awake, Alert, Well appearing MS Head Head Normocephalic Eyes Eyes PERRL, No periorbital redness, No periorbital swelling, Conjunctiva NL Ears/Nose/Throat Ears/Nose/Throat Airway patent, Mucous membranes moist, Pharynx NL, No pooling of secretions, No facial swelling Mouth Lip swelling present. Negative: Mucous membranes dry, Drooling, Pooling of secretions, Hypersalivation, Muffled voice, Stomatitis present, Tongue abnormal. Dental/Gums Decay extensive, Dental caries present, Dentition poor, Gum swelling. Negative: Ginigivitis present, Gum tenderness, Gum ulcers present. Resp/Chest Respiratory/Chest Breath sounds NL, Breath sounds = bilat, No respiratory distress, No rales, No rhonchi, No wheezing, No retractions, No stridor Cardiovascular Cardiovascular Heart rate NL, Regular rhythm, Heart sounds NL, No murmurs, Cap refill not delayed, Peripheral circulation NL, Pulses = bilaterally Abdomen/GI Abdomen/GI Atraumatic, Soft, Non-tender, McBurney's non-tender, No guarding, No rebound, BS normoactive, No distention, No hernia, No palpable mass, No pulsatile mass Text/Dict Notes Severely protuberant Skin Skin Atraumatic, Color NL, Warm, Dry, Intact, Turgor NL Text/Dict Notes Maculopapular rash involving the left upper lip and left upper gum region [ consisting of swelling] excluding tongue, throat; also noted urticaria on the right hip, buttock, and pubis. No excoriations noted. Neurologic Neurologic Oriented X3, Speech NL, No motor deficits, No sensory deficits, CN II - XII intact, Reflexes equal bilat, Cerebellar NL, Memory NL, Gait NL Re-Evaluation [facility] )( Re-Evaluation/Progress #1 Time of Re-Eval 023 )( Re-Eval Status Improved Plan Post Re-Eval Plan discharge Tissue Perfusion Reassessment Patient tissue perfusion reassessment completed. ED Course Time 230 Patient Course Stable, Improved Medication(s) Ordered Medication(s) Ordered: Antihistamine Drugs Sig/Yvan Start time Last Medication Dose Route Stop Time Status Admin Diphenhydramine HCl 50 MG X1ED STA 03/02 0227 DC 03/02 PO 03/02 227 0231 Gastrointestinal Drugs Sig/Yvan Start time Last Medication Dose Route Stop Time Status Admin Famotidine 40 MG X1ED STA 03/026 DC 03/02 PO 03/02 226 0230 Hormones And Synthetic Substit Sig/Yvan Start time Last Medication Dose Route Stop Time Status Admin Prednisone 60 MG X1ED STA 03/027 DC 03/02 PO 03/02 227 0231 Rx Drug Regimen New Rx given Additional Hx/Info Source Daughter Notes Reviewed Prior ED visit Safety Concerns Patient is safe Differential Diagnosis Differential Diagnosis Allergic reaction, Anaphylaxis, Angioedema, Angioneurotic edema, Contact dermatitis, Latex allergy, Viral exanthem, Viral syndrome Patient Discharge Departure Vital Signs/Condition Vital Signs First Documented: Result Date Time Pulse Ox 98 03/02 0218 B/P 177/81 03/02 021 B/P Mean 113 03/028 O2 Delivery Room air 03/02 217 Temp 97.4 03/02 021 Pulse 68 03/02 0218 Resp 18 03/02 0218 Last Documented: Result Date Time Pulse Ox 98 03/02 0240 B/P 162/79 03/02 0240 B/P Mean 106 03/02 0240 O2 Delivery Room air 03/02 0240 Pulse 70 03/02 0240 Resp 18 03/02 0240 Temp 97.4 03/02 0218 All vital signs available at the time of this entry have been reviewed. 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 Secondary Impressions: Accelerated secondary hypertension, DM2 (diabetes mellitus, type 2), Insomnia, Severe obesity (BMI 35.0-35.9 with comorbidity), Swelling of gums, Urticaria Ruled Out Impressions: Abnormal pulse, Abnormal pulse oximetry, Abnormal pulse rate, Fever Disposition Decision Discharge )( Discharged to Home Yes )( Time 0238 )( Date 03/02/23 Discharge/Care Plan Counseled Regarding Diagnosis, Prescriptions, Need for follow-up, When to return to ED (Auto) Prescriptions Current Visit Scripts predniSONE 50 MG PO DAILY predniSONE 50 MG PO DAILY #5 TABS Prescriptions Reviewed Risks, Benefits, Alternative treatment Patient Instructions ED Clear Liquid Diet, ED Diet, [facility] (Adult), ED Food Allergy, ED General Allergic Reactions, ED Hives (Adult), V-The Importance of Healthy ..., V-The Risks of Being Overweight Additional Instructions You presented ambulatory with your daughter and family for evaluation and management of urticaria and swelling of your gums following a pink and red chorizo taco. You report prior similar episode following eating a hotdog. Both may have a common denominator, such as red food dye #4: Please follow-up with your PCP Dr. Posada and an cleaning specialist [see attached referral] for allergy testing and definitive care. Going forward, avoid processed foods as much as possible. I have attached a prescription for prednisone, a steroid that will help with your symptoms. You may also benefit from [id number] Pepcid [a type II antihistamine], take 20 mg twice daily for the next 2 to 4 weeks, and you may also add a type I antihistamine such as Benadryl [this medication may make you quite drowsy and sleepy] or Joselyn that is in the same drug class, but is less likely to make you sleepy. Consider rell prednisone can increase your blood sugar levels, this effect will disappear after you have stopped taking prednisone. Incidentally, your body mass index is in the severely obese range as you have clinically significant comorbidities, such as diabetes. Consider consulting with a registered dietitian for weight management and diet counseling, this may also help with the medically significant diagnoses. Also ask your PCP for therapeutic options. It was a pleasure to meet you and your daughter joey, we hope you feel better soon! Referrals Provider Referral: Raza Posada MD Follow-Up: Call for appointment Notes: PMD Address: [address] [place] [id number] Provider Referral: Yanelis Cardenas MD Follow-Up: Call for appointment Notes: business account specialist Address: [address] [place] [id number] Discharge Note I have spoken with the patient and/or caregivers. I have explained the patient's condition, diagnoses and treatment plan based on the information available to me at this time. I have answered the patient's and/or caregiver's questions and addressed any concerns. The patient and/or caregivers have as good an understanding of the patient's diagnosis, condition and treatment plan as can be expected at this point. The vital signs have been stable. The patient's condition is stable and appropriate for discharge from the emergency department. The patient will pursue further outpatient evaluation with the primary care physician or other designated or consulting physician as outlined in the discharge instructions. The patient and/or caregivers are agreeable to this plan of care and follow-up instructions have been explained in detail. The patient and/or caregivers have received these instructions in written format and have expressed an understanding of the discharge instructions. The patient and/or caregivers are aware that any significant change in condition or worsening of symptoms should prompt an immediate return to this or the closest emergency department or a call to 911. Quality Measures BP F/U for HTN Referred for BP f/u < 4wk Current Medications Not eligible for review Smoking Cessation Screened, non user at 1736 RPT #:[id number] END OF REPORT [facility] 2022-05-06 03:06:[address] [facility] ([facility] EMERGENCY PROVIDER REPORT REPORT#:[id number] REPORT STATUS: Signed DATE:05/06/22 TIME: 0306 PATIENT: NETTA RAYMUNDO UNIT #: [id number] ROOM/BED: AGE: 56 SEX: M PCP PHYS: Raza Posada MD SERVICE AUTHOR: Anderson Escalante MD * ALL edits or amendments must be made on the electronic/computer document * HPI-Rash/Abscess/Cellulitis Free Text HPI Notes Free Text HPI Notes lip swelling and rash General Confirmed Patient Yes Patient Type New patient Initial Greet Date/Time 05/06/22 0255 Presentation Chief Complaint Tender/swollen area (right lip) Hx Obtained From Patient Onset Occurred Sudden Free Text HPI Notes Free Text HPI Notes Patient with history of hypertension presents to emergency room complaining of left upper lip swelling and rash on face that started early in the afternoon. Patient states that he has been having flea problem at home and he has been using permethrin and other insecticides but the fleas are still present. Denies shortness of breath, fever or chills. Patient's medication include lisinopril/hydrochlorothiazide, amlodipine, metformin and gemfibrozil. Review of Systems ROS Statements All systems rev neg except as marked. Complete sys rev neg except as marked. Basic Review of Systems Basic ROS : No dysuria/frequency, HEM: No bleeding/bruising, NEURO: No change MS, NEURO: No focal deficit, PSYCH: NL thought content Focused Review of Systems Ears/Nose/Throat Denies: Throat swelling, Tongue swelling. Respiratory Denies: Shortness of breath. Cardiovascular Denies: Chest pain. Skin Reports: Rash, Swelling (lip). Past Medical History - Adult Stated Complaint ALLERGIC REACTIONS, SWELLING TO UPPER LIP, RE Allergies Coded Allergies: No Known Allergies (08/23/20) Home Medications Discontinued Scripts ERYTHROMYCIN (ERYTHROMYCIN 0.5% OPHTH OINT) 1 APPLIC LEFT EYE TID 7 Days #3.5 GM Prov: 08/23/20 DC: 05/06/22 0257 Therapy completed Calculated Suicide Risk (nurs) No risk Review of Nursing Notes Rev avail, and agree Pt reports no significant: Past surgical history, Family history, Social history Smoking status for patients 13 years old or older: Never Smoker Physical Exam Vital Signs Vital Signs First Documented: Result Date Time Pulse Ox 96 05/06 0235 B/P 166/70 05/06 0235 B/P Mean 102 05/06 0235 O2 Delivery Room air 05/06 234 Temp 35.8 05/06 023 Pulse 76 05/06 0235 Resp 18 05/06 0235 Last Documented: Result Date Time Pulse Ox 97 05/06 0420 B/P 150/64 05/06 0420 B/P Mean 92 05/06 0420 O2 Delivery Room air 05/06 042 Temp 36.0 05/06 042 Pulse 72 05/06 0420 Resp 18 05/06 0420 Review of Vital Signs Reviewed, Vital signs normal Basic Physical Exam Basic PE HEAD: Atraumatic/NC, EYES: PERRL, conj clear, NECK: Supple, RESP: No resp distress, CV: Reg rate rhythm, ABD: Soft/non-tender, EXT: No gross abnormality, NEURO: alert oriented, NEURO: gross movement NL, PSYCH: NL thought content Focused PE General/Const General/Const Awake, Alert, No acute distress, Cooperative, Not toxic appearing Ears/Nose/Throat Ears/Nose/Throat Atraumatic, Airway patent, Mucous membranes moist, Pharynx NL Mouth Lip swelling present (right upper lip). Resp/Chest Respiratory/Chest Atraumatic, Breath sounds NL, Breath sounds = bilat, No respiratory distress, No rales, No rhonchi Cardiovascular Cardiovascular Heart rate NL, Regular rhythm, Heart sounds NL, No gallop, No murmurs, No rubs Skin Skin Atraumatic Rash/Lesion Notes rt eye and cheek red urticarial macular rash Rash/Lesion Location Face (rt). Re-Evaluation MDM Free Text MDM Notes Free Text MDM Notes Patient presents to emergency room with rash. I administered Benadryl, Solu-Medrol, famotidine and observed some improvement on patient's rash and swelling. This might be a reaction to the insecticide that he is using but there is also high suspicion for angioedema due to the use of JADEN inhibitors. Advised patient to follow-up with primary care doctor and consider revising medications and also to check for possible allergens at home. Also recommend to return to emergency room for worsening of condition. Patient voiced understanding and agreement Re-Evaluation/Progress Re-Evaluation/Progress Text/Dict Note Patient hemodynamically stable, improvement of rash. Time of Re-Eval 041 Re-Eval Status Improved Eval Following Treatment Pt. feels better Rash Adult MDM Note The patient is now resting comfortably and feels better, is alert, is not toxic, and is in no distress. The patient has a normal mental status and is neurologically intact. The rash does not have petechiae or purpura. There are no mucous membrane lesions, no signs of abscess, and no bullae. The patient appears well, has no fever, altered mental status or signs of systemic toxicity. The history, exam, diagnostic testing (if any) and current condition do not demonstrate signs of sepsis, Mcdade Spotted Fever, meningitis, meningococcemia, Lyme disease, toxic shock syndrome or other significant systemic illness requiring further treatment, testing or consultation in the emergency department. The vital signs have been stable. The patient's condition is stable and appropriate for discharge. The patient will pursue further outpatient evaluation with the primary care physician or other designated or consulting physician as indicated in the discharge instructions. Tissue Perfusion Reassessment Patient tissue perfusion reassessment completed. ED Course Medication(s) Ordered Medication(s) Ordered: Antihistamine Drugs Sig/Yvan Start time Last Medication Dose Route Stop Time Status Admin Diphenhydramine HCl 25 MG X1ED STA 05/06 0304 DC 05/06 PO 05/06 0305 0311 Gastrointestinal Drugs Sig/Yvan Start time Last Medication Dose Route Stop Time Status Admin Famotidine 20 MG X1ED STA 05/06 0304 DC 05/06 PO 05/06 0305 0311 Hormones And Synthetic Substit Sig/Yvan Start time Last Medication Dose Route Stop Time Status Admin Methylprednisolone 125 MG X1ED STA 05/07 303 DC 05/06 Sodium Succinate IM 05/06 304 0312 Differential Diagnosis Differential Diagnosis Contact dermatitis, Insect bite, Urticaria Patient Discharge Departure Vital Signs/Condition Vital Signs First Documented: Result Date Time Pulse Ox 96 05/06 234 B/P 166/70 05/06 234 B/P Mean 102 05/06 234 O2 Delivery Room air 05/06 234 Temp 35.8 05/06 234 Pulse 76 05/06 234 Resp 18 05/06 234 Last Documented: Result Date Time Pulse Ox 97 05/07 419 B/P 150/64 05/07 419 B/P Mean 92 05/07 419 O2 Delivery Room air 05/07 419 Temp 36.0 05/07 419 Pulse 72 05/07 419 Resp 18 05/07 419 All vital signs available at the time of this entry have been reviewed. Condition Stable, Improved Clinical Impression Clinical Impression Primary Impression: Angioedema Disposition Decision Discharge )( Discharged to Home Yes )( Time 041 )( Date 05/06/22 Discharge/Care Plan Counseled Regarding Diagnosis, Lab results, Prescriptions, Need for follow-up, When to return to ED (Auto) Prescriptions Current Visit Scripts predniSONE 20 MG PO DAILY predniSONE 20 MG PO DAILY #5 TABS Prescriptions Reviewed Risks, Benefits, Alternative treatment Patient Instructions ED Angioedema Additional Instructions Thank for allowing us to take care of your health. Check your home for possible allergens. Follow-up with your primary care doctor and review prescriptions including JADEN inhibitors. Return to emergency room for worsening of condition Discharge Note I have spoken with the patient and/or caregivers. I have explained the patient's condition, diagnoses and treatment plan based on the information available to me at this time. I have answered the patient's and/or caregiver's questions and addressed any concerns. The patient and/or caregivers have as good an understanding of the patient's diagnosis, condition and treatment plan as can be expected at this point. The vital signs have been stable. The patient's condition is stable and appropriate for discharge from the emergency department. The patient will pursue further outpatient evaluation with the primary care physician or other designated or consulting physician as outlined in the discharge instructions. The patient and/or caregivers are agreeable to this plan of care and follow-up instructions have been explained in detail. The patient and/or caregivers have received these instructions in written format and have expressed an understanding of the discharge instructions. The patient and/or caregivers are aware that any significant change in condition or worsening of symptoms should prompt an immediate return to this or the closest emergency department or a call to 911. at 0521 RPT #:[id number] END OF REPORT [facility] 2020-08-23 13:44:[address] 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 (L EYE PAIN) Past Medical History - Adult Stated Complaint EYE FOREIGN OBJECT Allergies Coded Allergies: No Known Allergies (08/23/20) Calculated Suicide Risk (nurs) No risk Smoking status: Smoking status for patients 13 years old or older: Unknown,if ever smoked Physical Exam Vital Signs Vital Signs First Documented: Result Date Time Pulse Ox 98 / 1323 B/P 170/80 07/ 1323 B/P Mean 110 07/08 1323 O2 Delivery Room air 07/ 1323 Temp 36.1 07/08 1323 Pulse 84 07/08 1323 Resp 18 07/ 1323 Last Documented: Result Date Time Pulse Ox 98 / 1323 B/P 170/80 07/08 1323 B/P Mean 110 07/08 1323 O2 Delivery Room air / 1323 Temp 36.1 07/08 1323 Pulse 84 07/08 1323 Resp 18 08/23 1323 Review of Vital Signs Reviewed Basic Physical Exam Basic PE GEN: Well appearing/NAD, HEAD: Atraumatic/NC, ENT: Membranes moist, NECK: Supple, RESP: No resp distress, CV: Reg rate rhythm, NEURO: alert oriented, NEURO: gross movement NL, PSYCH: NL thought content Physical Exam Eyes Eyes PERRL, EOMI Cornea/Ant Chamber Abrasion L, Foreign body L. Conjunctiva/Sclera Injected L. Procedures Foreign Body Removal - Ear Start Time 1347 Time Spent (minutes) 5 Procedure Performed by ED physician Consent/Setup Verified correct patient, Hand hygiene observed Foreign Body/#/Location L EYE Anesthesia/Instrument TETRACAINE OPTH,18G NEEDLE AND COTTON SAWB Removal of FB Complete Number of Attempts 2 Post-Procedure/Complications No complications, Condition improved, Tolerated procedure well, Patient stable Re-Evaluation MDM Free Text [facility] Notes Additional Text I have spoken with the patient and/or caregivers. I have explained the patient's condition, diagnoses and treatment plan based on the information available to me at this time. I have answered the patient's and/or caregiver's questions and addressed any concerns. The patient and/or caregivers have as good an understanding of the patient's diagnosis, condition and treatment plan as can be expected at this point. The vital signs have been stable. The patient's condition is stable and appropriate for discharge from the emergency department. The patient will pursue further outpatient evaluation with the primary care physician or other designated or consulting physician as outlined in the discharge instructions. The patient and/or caregivers are agreeable to this plan of care and follow-up instructions have been explained in detail. The patient and/or caregivers have received these instructions in written format and have expressed an understanding of the discharge instructions. The patient and/or caregivers are aware that any significant change in condition or worsening of symptoms should prompt an immediate return to this or the closest emergency department or a call to 911. ED Course Medication(s) Ordered Medication(s) Ordered: Anti-Infective Agents Sig/Yvan Start time Last Medication Dose Route Stop Time Status Admin Erythromycin 1 SRINIVASAN X1ED STA 08/23 1343 DC 08/23 LEFT EYE 08/23 1344 1346 Diagnostic Agents Sig/Yvan Start time Last Medication Dose Route Stop Time Status Admin Fluorescein Sodium 1 STRIP X1ED STA 08/23 1328 DC 08/23 LEFT EYE 08/23 1329 1345 Eye, Ear, Nose And Throat (Een Sig/Yvan Start time Last Medication Dose Route Stop Time Status Admin Tetracaine HCl 2 DROP X1ED STA 08/23 1328 DC 08 LEFT EYE 08/23 1329 1344 Patient Discharge Departure Vital Signs/Condition Vital Signs First Documented: Result Date Time Pulse Ox 98 07/08 1323 B/P 170/80 07/08 1323 B/P Mean 110 07/08 1323 O2 Delivery Room air 07/ 1323 Temp 36.1 07/08 1323 Pulse 84 07/08 1323 Resp 18 07/08 1323 Last Documented: Result Date Time Pulse Ox 98 07/08 1323 B/P 170/80 07/08 1323 B/P Mean 110 07/08 1323 O2 Delivery Room air 07/ 1323 Temp 36.1 07/08 1323 Pulse 84 07/08 1323 Resp 18 /08 1323 All vital signs available at the time of this entry have been reviewed. Condition Stable Clinical Impression Clinical Impression Primary Impression: Eye foreign body Secondary Impressions: Corneal abrasion, left Time of Impression 1349 Disposition Decision Discharge )( Discharged to Home Yes )( Time 1349 )( Date 08/23/20 Discharge/Care Plan (Auto) Prescriptions Current Visit Scripts ERYTHROMYCIN (AK-MYCIN 0.5% OPHTH OINT) 1 APPLIC LEFT EYE TID 7 Days #3.5 GM Patient Instructions ED Corneal Abrasion Additional Instructions Thank you for allowing us to participate in your care today, please follow-up with your primary care doctor in 1 to 2 days, use your medication as directed, come back to the emergency room for any worsening symptoms at 1351 RPT #:[id number] END OF REPORT [facility]
[2024-04-03 09:03] LABS: Absolute Basophils 0.1 K/uL (0-0.5); Absolute Eosinophils 0.1 K/uL (0-0.5); Absolute Lymphocytes (CBC) 1.8 K/uL (0.7-4.9); Absolute Monocytes 0.8 K/uL (0.1-1.3); Absolute Neutrophil 5.8 K/uL (1.8-8.0); Basophils % 0.7 % (0-1.3); Hematocrit 43.9 % (39.6-49.0); Hemoglobin 14.8 g/dL (13.6-17.9); Lymphocytes % 21.1 % (15.3-44.8); MCH 31.7 pg (27.0-35.0); MCHC 33.8 g/dL (32.0-36.0); MCV 93.9 fL (80-100); MPV 9.8 fL (7.6-11.3); Monocytes % 9.3 % (3.3-12.3); Neutrophils % 67.9 % (41.7-73.7); Nucleated Red Blood Cells % 0.1 % (0-0); Platelets 160 thou/uL (152-406); RBC Red Blood Cell Count 4.68 M/uL (4.33-5.43); Red Cell Distribution Width 13.4 % (12.1-15.2)
[2024-04-03 09:13] LABS: Anion Gap 5.9 mEq/L (5.0-15.0); Potassium 3.9 mEq/L (3.5-5.1); Troponin High Sensitivity 5.4 pg/mL (<58.9)
--- NOTE | 2024-04-03 10:13 | RAD REPORT ---
Procedure: Chest Single View HISTORY: Chest pain COMPARISON: none FINDINGS: The lungs appear clear of acute infiltrate. No significant pleural effusion noted. The heart is normal size. IMPRESSION: No acute abnormality is displayed.
--- NOTE | 2024-04-03 10:17 | EDPHYS ---
Physician Documentation [facility] Name: Derek Chávez Age: 58 yrs Sex: Male : 1965 Arrival Date: 04/03/2024 Time: 08:24 Bed 20 Private MD: ED Physician Rigoberto May HPI: 04/03 08:43 This 58 yrs old Male presents to ER via Ambulatory with complaints of Chest ec2 Pain. 08:43 Patient arrives today for left-sided chest pain. Patient reports has been having ec2 symptoms for at least 1 week. Reports occasional cough as well. Reports no difficulty breathing, no vomiting, no diarrhea symptoms. Patient reports history of hypertension, diabetes. Also hyperlipidemia. Denies any cardiac history.. Historical: - Allergies: 08:41 No Known Allergies; hb - Home Meds: 08:41 amlodipine oral [Active]; Lisinopril Oral [Active]; atorvastatin oral [Active]; hb Metformin Oral [Active]; - PMHx: 08:41 Hypertension; DM2; hb - PSHx: 08:41 None; hb - Immunization history:: Adult Immunizations up to date. - Infectious Disease History:: Denies. - Social history:: Smoking status: Patient denies any tobacco usage or history of. ROS: 08:44 Constitutional: as per hpi ec2 Exam: 08:44 Constitutional: GEN: NAD Head: atraumatic Eyes: EOMI Ears: External ears are ec2 normal. CV: regular rate LUNGS: no respiratory distress ABD: non-distended SKIN: no evidence of rashes MSK: no evidence of trauma Vital Signs: 08:40 BP 178 / 99; Pulse 71; Resp 19; Temp 98.5(O); Pulse Ox 100% on R/A; Weight 117.93 kg; hb Height 6 ft. 0 in. ; Pain 8/10; 09:48 BP 107 / 92; Pulse 63; Resp 18; Pulse Ox 98% on R/A; mb9 10:42 BP 110 / 68; Pulse 65; Resp 16; Pulse Ox 100% on R/A; mb9 08:40 Body Mass Index 35.26 (117.93 kg, 182.88 cm) hb 08:40 Pain Scale: Adult hb MDM: 08:29 Medical Screening Exam initiated ec2 08:44 Data reviewed: vital signs, nurses notes. ED course: Patient arrives today for ec2 evaluation of chest pain. Examination is unrevealing. EKG obtained, independently reviewed and interpreted by me, shows normal sinus rhythm, rate of 64, no acute ST segment elevations, intervals are nonactionable. Will obtain cardiac workup as well as chest x-ray. Differential clues processes such as viral infection, costochondritis, esophagitis, ACS. 10:17 ED course: Chest x-ray shows no acute intrathoracic process, lab work is unrevealing. ec2 On reassessment patient is well-appearing no acute distress. Will discharge home at the patient follow-up with PCP. Return precautions given.. 04/03 08:43 Order name: Basic Metabolic Panel; Complete Time: 09:15 ec2 04/03 08:43 Order name: CBC with Diff; Complete Time: 09:15 ec2 04/03 08:43 Order name: Troponin HS; Complete Time: 09:15 ec2 04/03 08:43 Order name: Cholesterol; Complete Time: 09:15 ec2 04/03 08:43 Order name: BNP; Complete Time: 09:15 ec2 04/03 08:43 Order name: XRAY Chest (1 view); Complete Time: 10:16 ec2 04/03 08:43 Order name: EKG; Complete Time: 08:43 ec2 04/03 08:43 Order name: Cardiac monitoring; Complete Time: 08:44 ec2 04/03 08:43 Order name: EKG - Nurse/Tech; Complete Time: 08:44 ec2 04/03 08:43 Order name: IV Saline Lock; Complete Time: 08:44 ec2 04/03 08:43 Order name: Labs collected and sent; Complete Time: 08:44 ec2 04/03 08:43 Order name: O2 Per Protocol; Complete Time: 08:44 ec2 04/03 08:43 Order name: O2 Sat Monitoring; Complete Time: 08:44 ec2 Administered Medications: No medications were administered Disposition Summary: 04/03/24 10:17 Discharge Ordered Notes: Location: Home ec2 Condition: Stable ec2 Diagnosis - Chest pain, unspecified ec2 Followup: ec2 - With: Private Physician - When: - Reason: Re-evaluation by your physician Discharge Instructions: - Discharge Summary Sheet ec2 - Nonspecific Chest Pain, Adult, [id number] ec2 Forms: - Medication Reconciliation Form ec2 - Antibiotic Education ec2 - Prescription Opioid Use ec2 - Patient Portal Instructions ec2 - Leadership Thank You Letter ec2 Prescriptions: - amlodipine 10 mg Oral tablet - take 1 tablet ORAL route daily; 20 tablet; Refills: 0, Product Selection ec2 Permitted - Lisinopril-Hydrochlorothiazide 20-12.5 mg Oral Tablet - take 1 tablet ORAL route once daily; 20 tablet; Refills: 0, Product Selection ec2 Permitted - Metformin 1,000 mg Oral tablet - take 1 tablet ORAL route every 24 hours with morning and evening meals; 20 ec2 tablet; Refills: 0, Product Selection Permitted Signatures: Dispatcher [employer] Rosanne Long RN RN Rigoberto May MD MD ec2 Corrections: (The following items were deleted from the chart) 08:43 08:43 CHOLESTEROL+C.LAB.BRZ ordered. EDWI EDWI
--- NOTE | 2024-04-03 10:17 | ER ---
Nurse's Notes [facility] Name: Derek Chávez Age: 58 yrs Sex: Male : 1965 Arrival Date: 04/03/2024 Time: 08:24 Bed 20 Private MD: Diagnosis: Chest pain, unspecified Presentation: 04/03 08:40 Chief complaint: Sharp left sided chest pain that radiates to the back upon waking hb today, nonproductive cough x 2-3 weeks. Coronavirus screen: At this time, the client does not indicate any symptoms associated with coronavirus-19. Ebola Screen: No symptoms or risks identified at this time. Initial Sepsis Screen: Does the patient meet any 2 criteria? No. Patient's initial sepsis screen is negative. Does the patient have a suspected source of infection? No. Patient's initial sepsis screen is negative. Risk Assessment: Do you want to hurt yourself or someone else? Patient reports no desire to harm self or others. Onset of symptoms was April 03, 2024. 08:40 Method Of Arrival: Ambulatory hb 08:40 Acuity: MADELAINE 2 hb Historical: - Allergies: 08:41 No Known Allergies; hb - Home Meds: 08:41 amlodipine oral [Active]; Lisinopril Oral [Active]; atorvastatin oral [Active]; hb Metformin Oral [Active]; - PMHx: 08:41 Hypertension; DM2; hb - PSHx: 08:41 None; hb - Immunization history:: Adult Immunizations up to date. - Infectious Disease History:: Denies. - Social history:: Smoking status: Patient denies any tobacco usage or history of. Screenin:46 [facility] ED Fall Risk Assessment (Adult) History of falling in the last 3 months, mb9 including since admission No falls in past 3 months (0 pts) Confusion or Disorientation No (0 pts) Intoxicated or Sedated No (0 pts) Impaired Gait No (0 pts) Mobility Assist Device Used No (0 pt) Altered Elimination No (0 pt) Score/Fall Risk Level 0 - 2 = Low Risk Oriented to surroundings, Maintained a safe environment, Educated pt \T\ family on fall prevention, incl call for assistance when getting out of bed. Abuse screen: Denies threats or abuse. Nutritional screening: No deficits noted. Tuberculosis screening: No symptoms or risk factors identified. Assessment: 08:45 General: Appears in no apparent distress. Behavior is calm, cooperative. Pain: mb9 Complains of pain in chest Pain radiates to back Pain currently is 0 out of 10 on a pain scale. Quality of pain is described as sharp, stabbing, Pain began suddenly, Is intermittent. Neuro: De Jesus Agitation-Sedation Scale (RASS): 0 - Alert and Calm Level of Consciousness is awake, alert, obeys commands, Oriented to person, place, time, situation, Appropriate for age. Cardiovascular: Reports chest pain, Heart tones S1 S2 present Patient's skin is warm and dry. Cardiovascular: Edema. Respiratory: Airway is patent Respiratory effort is even, unlabored, Respiratory pattern is regular, symmetrical, Breath sounds are clear bilaterally. GI: Abdomen is round non-distended, Bowel sounds present X 4 quads. Abd is soft and non tender X 4 quads. : No signs and/or symptoms were reported regarding the genitourinary system. EENT: No signs and/or symptoms were reported regarding the EENT system. Derm: Skin is pink, warm \T\ dry. Musculoskeletal: Range of motion: intact in all extremities. 09:48 Reassessment: No changes from previously documented assessment. Patient and/or family mb9 updated on plan of care and expected duration. Pain level reassessed. Patient is alert, oriented x 3, equal unlabored respirations, skin warm/dry/pink. 10:42 Reassessment: No changes from previously documented assessment. Patient and/or family mb9 updated on plan of care and expected duration. Pain level reassessed. Patient is alert, oriented x 3, equal unlabored respirations, skin warm/dry/pink. Vital Signs: 08:40 BP 178 / 99; Pulse 71; Resp 19; Temp 98.5(O); Pulse Ox 100% on R/A; Weight 117.93 kg; hb Height 6 ft. 0 in. ; Pain 8/10; 09:48 BP 107 / 92; Pulse 63; Resp 18; Pulse Ox 98% on R/A; mb9 10:42 BP 110 / 68; Pulse 65; Resp 16; Pulse Ox 100% on R/A; mb9 08:40 Body Mass Index 35.26 (117.93 kg, 182.88 cm) hb 08:40 Pain Scale: Adult hb ED Course: 08:27 Patient arrived in ED. al6 08:29 Rigoberto May MD is Attending Physician. ec2 08:35 Yolette Tony, RN is Primary Nurse. mb9 08:39 Client placed on continuous cardiac and pulse oximetry monitoring. NIBP monitoring hb applied. playground monitor on. Pulse ox on. NIBP on. 08:39 EKG done, by ED staff, reviewed by Rigoberto May MD. hb 08:41 Triage completed. hb 08:44 Arm band placed on. hb 08:45 Initial lab(s) drawn, by pr, sent to lab. EKG done, by ED staff, reviewed by Rigoberto May MD. Inserted saline lock: 20 gauge in right antecubital area, using aseptic technique. Blood collected. Flushed with 10 mL NS. 08:46 Placed in gown. Bed in low position. Call light in reach. Side rails up X 1. Provided mb9 Education on: press call light if needing anything. Door closed. Noise minimized. Warm blanket given. Pillow given. 10:09 XRAY Chest (1 view) In Process Unspecified. EDMS 10:41 IV discontinued, intact, bleeding controlled, No redness/swelling at site. Pressure mb9 dressing applied. 10:41 No provider procedures requiring assistance completed. mb9 Administered Medications: No medications were administered Medication: 08:47 VIS not applicable for this client. mb9 Outcome: 10:17 Discharge ordered by MD. ec2 10:44 Discharged to home ambulatory, mb9 10:44 Condition: stable 10:44 Discharge instructions given to patient, Instructed on discharge instructions, follow up and referral plans. Demonstrated understanding of instructions, follow-up care, medications, Prescriptions given X 3, 10:44 Patient left the ED. mb9 Signatures: Dispatcher [employer] EDMS Rosanne Avilez RN RN hb Wilkerson, Mary Beth, RN RN mb9 Corral, Edwin, MD MD 2 Roya Sebastian al6
[2024-04-03 11:19] VITALS: TEMP 98.5
[2024-04-03 11:22] VITALS: BP 110/68; O2SAT 100
== END 2024-04-03 10:44 | disposition home or self-care (01) ==
LOC: ER 08:24
DX: R07.89 Other chest pain (principal); I10 Essential (primary) hypertension; E11.9 Type 2 diabetes mellitus without complications
CPT/HCPCS: 36415; 71045; 80048; 82465; 83880; 84484; 85025; 93005; 99285